=== PATIENT | female | born 1945 | race Asian ===

== ENCOUNTER 2018-06-19 15:29 | Outpatient (CLI) | payer OTHER ==
[2018-06-19 16:13] LABS: CHOL/HDL RATIO 3.5 (1-4.5)
== END 2018-06-19 20:34 | disposition home or self-care (01) ==
LOC: MLB 15:29
PROVIDERS: ATTEND Internal Medicine Geriatric Medicine
DX: E78.5 Hyperlipidemia, unspecified (principal); E16.2 Hypoglycemia, unspecified
CPT/HCPCS: 36415; 82306; 83036

== ENCOUNTER 2018-10-03 18:57 | Outpatient (CLI) | payer OTHER | END 2018-10-03 22:22 | disposition home or self-care (01) | LOC: MLB 18:57 | PROVIDERS: ATTEND Internal Medicine Geriatric Medicine | DX: R73.03 Prediabetes (principal) | CPT/HCPCS: 36415; 82306; 83036 ==

== ENCOUNTER 2019-01-09 19:19 | Outpatient (CLI) | payer OTHER | END 2019-01-09 22:36 | disposition home or self-care (01) | LOC: MLB 19:19 | PROVIDERS: ATTEND Internal Medicine Geriatric Medicine | DX: R73.03 Prediabetes (principal) | CPT/HCPCS: 36415; 82306; 83036 ==

== ENCOUNTER 2019-05-22 15:45 | Outpatient (CLI) | payer OTHER ==
[2019-05-22 16:54] LABS: ANION GAP 15.3 (8-16); CARBON DIOXIDE 26.1 mmol/L (21-32); CHLORIDE 96 mmol/L (98-107); CREATININE 1.2 mg/dL (0.6-1.3); GLUCOSE 92 mg/dL (74-106); POTASSIUM 4.4 mmol/L (3.5-5.1); SODIUM SERUM 133 mmol/L (136-145); UREA NITROGEN, BLOOD 27 mg/dL (7-18)
[2019-05-22 17:00] LABS: CHOL/HDL RATIO 3.6 (1-4.5)
[2019-05-22 21:34] LABS: CKMB RELATIVE INDEX 1.9 (0.0-2.5); CREATINE KINASE MB 4.4 ng/mL (0-3.6)
== END 2019-05-22 20:22 | disposition home or self-care (01) ==
LOC: MLB 15:45
PROVIDERS: ATTEND Internal Medicine Geriatric Medicine
DX: I12.9 Hypertensive chronic kidney disease with stage 1 through stage 4 chronic kidney disease, or unspecified chronic kidney disease (principal); N18.3 Chronic kidney disease, stage 3 (moderate); R73.03 Prediabetes
CPT/HCPCS: 36415; 80048; 82550; 82553; 83036; 84484

== ENCOUNTER 2019-05-25 14:34 | Outpatient (CLI) | payer OTHER ==
[2019-05-25 14:55] LABS: BASOPHILS # (AUTO) 0.1 K/uL (0.00-0.22); EOSINOPHILS # (AUTO) 0.3 K/uL (0-0.4); EOSINOPHILS % (AUTO) 4.2 % (0.0-4.0); HEMATOCRIT 38.4 % (36-48); HEMOGLOBIN 13.1 g/dL (12.0-16.0); LYMPHOCYTES # (AUTO) 1.2 K/uL (2.5-16.5); LYMPHOCYTES % (AUTO) 18.7 % (20.5-51.1); MEAN CORPUSCULAR HEMOGLOBIN 31 pg (27-31); MEAN CORPUSCULAR HGB CONC 34 g/dL (33-37); MEAN CORPUSCULAR VOLUME 89.7 fL (80-94); MONOCYTES # (AUTO) 0.6 K/uL (0.8-1.0); NEUTROPHILS # (AUTO) 4.2 K/uL (1.8-7.7); NEUTROPHILS % (AUTO) 66.1 % (42.2-75.2); PLATELET COUNT (AUTO) 324 K/uL (140-450); RED BLOOD CELL COUNT(AUTO) 4.29 MIL/uL (4.20-5.40); RED CELL DISTRIBUTION WIDTH 13.5 % (11.6-13.7); WHITE BLOOD COUNT (AUTO) 6.4 K/uL (4.8-10.8)
[2019-06-05 20:47] LABS: ANTI-NUCLEAR ANTIBODY TITER NEGATIVE (Negative)
== END 2019-05-25 22:07 | disposition home or self-care (01) ==
LOC: MLB 14:34
PROVIDERS: ATTEND Internal Medicine Geriatric Medicine
DX: R07.89 Other chest pain (principal)
CPT/HCPCS: 36415; 82550; 82553; 84484; 85025; 85651; 86038; 86430

== ENCOUNTER 2019-08-27 18:12 | Outpatient (CLI) | payer OTHER ==
[2019-08-27 18:34] LABS: BASOPHILS # (AUTO) 0.1 K/uL (0.00-0.22); BASOPHILS % (AUTO) 1.6 % (0.0-2.0); EOSINOPHILS # (AUTO) 0.2 K/uL (0-0.4); EOSINOPHILS % (AUTO) 2.8 % (0.0-4.0); HEMATOCRIT 35.7 % (36-48); HEMOGLOBIN 12.4 g/dL (12.0-16.0); LYMPHOCYTES # (AUTO) 1.5 K/uL (2.5-16.5); LYMPHOCYTES % (AUTO) 19.7 % (20.5-51.1); MEAN CORPUSCULAR HEMOGLOBIN 30 pg (27-31); MEAN CORPUSCULAR HGB CONC 35 g/dL (33-37); MEAN CORPUSCULAR VOLUME 85.9 fL (80-94); MONOCYTES # (AUTO) 0.9 K/uL (0.8-1.0); MONOCYTES % (AUTO) 11.9 % (1.7-9.3); NEUTROPHILS # (AUTO) 4.8 K/uL (1.8-7.7); PLATELET COUNT (AUTO) 427 K/uL (140-450); RED BLOOD CELL COUNT(AUTO) 4.15 MIL/uL (4.20-5.40); RED CELL DISTRIBUTION WIDTH 13.2 % (11.6-13.7); WHITE BLOOD COUNT (AUTO) 7.5 K/uL (4.8-10.8)
[2019-08-27 18:52] LABS: ALBUMIN 3.4 g/dL (3.4-5.0); ANION GAP 12.3 (8-16); ASPARTATE AMINOTRANSFERASE 19 U/L (15-37); CARBON DIOXIDE 27.8 mmol/L (21-32); CHLORIDE 95 mmol/L (98-107); CHOL/HDL RATIO 2.9 (1-4.5); CKMB RELATIVE INDEX 2.5 (0.0-2.5); CREATINE KINASE MB 3.3 ng/mL (0-3.6); CREATININE 1.1 mg/dL (0.6-1.3); GLUCOSE 92 mg/dL (74-106); HDL CHOLESTEROL 79 mg/dL (40-60); LDL (CALC) 128 mg/dL (60-100); POTASSIUM 4.1 mmol/L (3.5-5.1); SODIUM SERUM 131 mmol/L (136-145); TOTAL BILIRUBIN 0.2 mg/dL (0.0-1.0); TRIGLYCERIDES 103 mg/dL (30-150); UREA NITROGEN, BLOOD 24 mg/dL (7-18)
== END 2019-08-27 22:00 | disposition home or self-care (01) ==
LOC: MLB 18:12
PROVIDERS: ATTEND Internal Medicine Geriatric Medicine
DX: E78.5 Hyperlipidemia, unspecified (principal)
CPT/HCPCS: 36415; 80053; 82550; 82553; 84484; 85025

== ENCOUNTER 2021-02-18 18:07 | Outpatient (CLI) | payer OTHER ==
[2021-02-18 18:47] LABS: SODIUM SERUM 134 mmol/L (136-145)
[2021-02-18 18:48] LABS: ASPARTATE AMINOTRANSFERASE 25 U/L (15-37); CARBON DIOXIDE 28.6 mmol/L (21-32); CHLORIDE 101 mmol/L (98-107); CREATININE 1.1 mg/dL (0.6-1.3); GLUCOSE 97 mg/dL (74-106); POTASSIUM 4.6 mmol/L (3.5-5.1); TOTAL BILIRUBIN 0.3 mg/dL (0.0-1.0); UREA NITROGEN, BLOOD 23 mg/dL (7-18)
[2021-02-18 18:49] LABS: ALBUMIN 3.5 g/dL (3.4-5.0); CHOL/HDL RATIO 3.3 (1-4.5); HDL CHOLESTEROL 72 mg/dL (40-60); LDL (CALC) 150 mg/dL (60-100); TRIGLYCERIDES 95 mg/dL (30-150)
== END 2021-02-18 20:25 | disposition home or self-care (01) ==
LOC: MLB 18:07
PROVIDERS: ATTEND Internal Medicine Geriatric Medicine
DX: E78.5 Hyperlipidemia, unspecified (principal); E55.9 Vitamin D deficiency, unspecified; R73.03 Prediabetes
CPT/HCPCS: 36415; 80053; 83036

== ENCOUNTER 2022-02-01 15:09 | Outpatient (CLI) | payer OTHER ==
[2022-02-01 15:25] LABS: BASOPHILS # (AUTO) 0.1 K/uL (0.00-0.22); BASOPHILS % (AUTO) 0.8 % (0.0-2.0); EOSINOPHILS # (AUTO) 0.1 K/uL (0-0.4); EOSINOPHILS % (AUTO) 2.3 % (0.0-4.0); HEMATOCRIT 39.6 % (36-48); HEMOGLOBIN 13.3 g/dL (12.0-16.0); LYMPHOCYTES # (AUTO) 1.5 K/uL (2.5-16.5); LYMPHOCYTES % (AUTO) 24.8 % (20.5-51.1); MEAN CORPUSCULAR HEMOGLOBIN 29 pg (27-31); MEAN CORPUSCULAR HGB CONC 34 g/dL (33-37); MEAN CORPUSCULAR VOLUME 87.4 fL (80-94); MONOCYTES # (AUTO) 0.7 K/uL (0.8-1.0); MONOCYTES % (AUTO) 10.9 % (1.7-9.3); NEUTROPHILS # (AUTO) 3.8 K/uL (1.8-7.7); NEUTROPHILS % (AUTO) 61.2 % (42.2-75.2); PLATELET COUNT (AUTO) 274 K/uL (140-450); RED BLOOD CELL COUNT(AUTO) 4.53 MIL/uL (4.20-5.40); RED CELL DISTRIBUTION WIDTH 13.7 % (11.6-13.7); WHITE BLOOD COUNT (AUTO) 6.2 K/uL (4.8-10.8)
[2022-02-01 15:42] LABS: ALBUMIN 3.5 g/dL (3.4-5.0); ANION GAP 12.1 (8-16); ASPARTATE AMINOTRANSFERASE 25 U/L (15-37); CARBON DIOXIDE 26.6 mmol/L (21-32); CHLORIDE 101 mmol/L (98-107); CHOL/HDL RATIO 2.6 (1-4.5); GLUCOSE 93 mg/dL (74-106); HDL CHOLESTEROL 102 mg/dL (40-60); LDL (CALC) 152 mg/dL (60-100); POTASSIUM 4.7 mmol/L (3.5-5.1); SODIUM SERUM 135 mmol/L (136-145); TOTAL BILIRUBIN 0.3 mg/dL (0.0-1.0); TRIGLYCERIDES 73 mg/dL (30-150); UREA NITROGEN, BLOOD 18 mg/dL (7-18)
== END 2022-02-01 20:58 | disposition home or self-care (01) ==
LOC: MLB 15:09
PROVIDERS: ATTEND Internal Medicine Geriatric Medicine
DX: R73.03 Prediabetes (principal); E78.5 Hyperlipidemia, unspecified; E55.9 Vitamin D deficiency, unspecified
CPT/HCPCS: 36415; 80053; 83036; 85025

== ENCOUNTER 2022-04-28 16:07 | Outpatient (CLI) | payer OTHER ==
[2022-04-28 16:34] LABS: BASOPHILS % (AUTO) 0.8 % (0.0-2.0); EOSINOPHILS # (AUTO) 0.2 K/uL (0-0.4); EOSINOPHILS % (AUTO) 3.2 % (0.0-4.0); HEMATOCRIT 39.5 % (36-48); HEMOGLOBIN 13.6 g/dL (12.0-16.0); LYMPHOCYTES # (AUTO) 1.3 K/uL (2.5-16.5); LYMPHOCYTES % (AUTO) 23.3 % (20.5-51.1); MEAN CORPUSCULAR HEMOGLOBIN 30 pg (27-31); MEAN CORPUSCULAR HGB CONC 34 g/dL (33-37); MEAN CORPUSCULAR VOLUME 87.1 fL (80-94); MONOCYTES # (AUTO) 0.6 K/uL (0.8-1.0); MONOCYTES % (AUTO) 10.1 % (1.7-9.3); NEUTROPHILS # (AUTO) 3.5 K/uL (1.8-7.7); NEUTROPHILS % (AUTO) 62.6 % (42.2-75.2); PLATELET COUNT (AUTO) 292 K/uL (140-450); RED BLOOD CELL COUNT(AUTO) 4.54 MIL/uL (4.20-5.40); RED CELL DISTRIBUTION WIDTH 13.9 % (11.6-13.7); WHITE BLOOD COUNT (AUTO) 5.6 K/uL (4.8-10.8)
[2022-04-28 16:53] LABS: HDL CHOLESTEROL 98 mg/dL (40-60); LDL (CALC) 174 mg/dL (60-100); TRIGLYCERIDES 103 mg/dL (30-150)
[2022-04-28 18:53] LABS: ANION GAP 17.7 (8-16); CARBON DIOXIDE 24.1 mmol/L (21-32); CHLORIDE 99 mmol/L (98-107); CREATININE 0.9 mg/dL (0.6-1.3); GLUCOSE 87 mg/dL (74-106); POTASSIUM 4.8 mmol/L (3.5-5.1); SODIUM SERUM 136 mmol/L (136-145); UREA NITROGEN, BLOOD 16 mg/dL (7-18)
[2022-04-28 19:17] LABS: ASPARTATE AMINOTRANSFERASE 41 U/L (15-37); TOTAL BILIRUBIN 0.3 mg/dL (0.0-1.0)
[2022-04-28 20:18] LABS: ALBUMIN 3.5 g/dL (3.4-5.0)
== END 2022-04-28 20:25 | disposition home or self-care (01) ==
LOC: MLB 16:07
PROVIDERS: ATTEND Internal Medicine Geriatric Medicine
DX: E78.5 Hyperlipidemia, unspecified (principal); R73.03 Prediabetes
CPT/HCPCS: 36415; 80053; 83036; 85025

== ENCOUNTER 2022-11-01 15:33 | Outpatient (CLI) | payer OTHER ==
[2022-11-01 16:14] LABS: ALBUMIN 3.5 g/dL (3.4-5.0); ANION GAP 9.9 (8-16); ASPARTATE AMINOTRANSFERASE 24 U/L (15-37); CARBON DIOXIDE 30.4 mmol/L (21-32); CHLORIDE 97 mmol/L (98-107); CHOL/HDL RATIO 2.2 (1-4.5); CREATININE 1.2 mg/dL (0.6-1.3); GLUCOSE 105 mg/dL (74-106); HDL CHOLESTEROL 89 mg/dL (40-60); LDL (CALC) 89 mg/dL (60-100); POTASSIUM 4.3 mmol/L (3.5-5.1); SODIUM SERUM 133 mmol/L (136-145); TOTAL BILIRUBIN 0.3 mg/dL (0.0-1.0); TRIGLYCERIDES 101 mg/dL (30-150); UREA NITROGEN, BLOOD 23 mg/dL (7-18)
== END 2022-11-01 20:15 | disposition home or self-care (01) ==
LOC: MLB 15:33
PROVIDERS: ATTEND Internal Medicine Geriatric Medicine
DX: E78.5 Hyperlipidemia, unspecified (principal); R73.09 Other abnormal glucose
CPT/HCPCS: 36415; 80053; 83036

== ENCOUNTER 2023-01-28 19:45 | Outpatient (CLI) | payer OTHER ==
[2023-01-28 21:26] LABS: ALBUMIN 3.8 g/dL (3.4-5.0); ANION GAP 12.5 (8-16); ASPARTATE AMINOTRANSFERASE 35 U/L (15-37); CARBON DIOXIDE 29.4 mmol/L (21-32); CHLORIDE 93 mmol/L (98-107); GLUCOSE 79 mg/dL (74-106); HDL CHOLESTEROL 103 mg/dL (40-60); LDL (CALC) 59 mg/dL (60-100); POTASSIUM 3.9 mmol/L (3.5-5.1); SODIUM SERUM 131 mmol/L (136-145); TOTAL BILIRUBIN 0.3 mg/dL (0.0-1.0); TRIGLYCERIDES 195 mg/dL (30-150); UREA NITROGEN, BLOOD 23 mg/dL (7-18)
== END 2023-01-28 21:21 | disposition home or self-care (01) ==
LOC: MLB 19:45
PROVIDERS: ATTEND Internal Medicine Geriatric Medicine
DX: R73.03 Prediabetes (principal); E78.5 Hyperlipidemia, unspecified
CPT/HCPCS: 36415; 80053; 83036

== ENCOUNTER 2023-02-01 14:42 | Outpatient (CLI) | payer OTHER | END 2023-02-01 17:50 | disposition home or self-care (01) | LOC: MUS 14:42 | PROVIDERS: ATTEND Internal Medicine Geriatric Medicine | DX: N18.9 Chronic kidney disease, unspecified (principal) | CPT/HCPCS: 76770 ==

== ENCOUNTER 2023-08-17 15:49 | Outpatient (CLI) | payer OTHER ==
[2023-08-17 17:40] LABS: ALANINE AMINOTRANSFERASE 32 U/L (12-78); ALBUMIN 3.2 g/dL (3.4-5.0); ALKALINE PHOSPHATASE 83 U/L (50-136); ANION GAP 11.6 (8-16); ASPARTATE AMINOTRANSFERASE 26 U/L (15-37); CALCIUM 9.7 mg/dL (8.5-10.1); CARBON DIOXIDE 28.4 mmol/L (21-32); CHLORIDE 101 mmol/L (98-107); CHOL/HDL RATIO 1.9 (1-4.5); CHOLESTEROL 184 mg/dL (<200); CREATININE 1.2 mg/dL (0.6-1.3); GLUCOSE 89 mg/dL (74-106); HDL CHOLESTEROL 95 mg/dL (40-60); LDL (CALC) 79 mg/dL (60-100); SODIUM SERUM 136 mmol/L (136-145); TOTAL BILIRUBIN 0.4 mg/dL (0.0-1.0); TOTAL PROTEIN, SERUM 8.6 g/dL (6.4-8.2); TRIGLYCERIDES 54 mg/dL (30-150); UREA NITROGEN, BLOOD 22 mg/dL (7-18)
== END 2023-08-17 20:22 | disposition home or self-care (01) ==
LOC: MLB 15:49
PROVIDERS: ATTEND Internal Medicine Geriatric Medicine
DX: E78.5 Hyperlipidemia, unspecified (principal); R73.03 Prediabetes
CPT/HCPCS: 36415; 80053; 83036

== ENCOUNTER 2024-04-23 21:16 | Emergency (ER) | payer OTHER ==
[~2024-04-23] VITALS: Ht 152.4 cm; Wt 68.0 kg
[2024-04-23 21:18] VITALS: BP 180/75; PULSE 61; RESP 16; TEMP 98.2; O2SAT 99
[2024-04-23 21:56] VITALS: O2SAT 99
== END 2024-04-23 23:00 | disposition home or self-care (01) ==
LOC: MED 21:16
DX: I10 Essential (primary) hypertension (principal); R51.9 Headache, unspecified; R11.2 Nausea with vomiting, unspecified; Z88.2 Allergy status to sulfonamides
CPT/HCPCS: 99281

== ENCOUNTER 2024-04-25 11:02 | Inpatient (IN) | payer OTHER ==
[~2024-04-25] VITALS: Ht 152.4 cm; Wt 67.6 kg
[2024-04-25 11:23] VITALS: BP 174/72; PULSE 59; RESP 20; TEMP 97.8; O2SAT 98
[2024-04-25] MEDS: ACETAMINOPHEN 325 MG TAB PO ONE (12:19)
[2024-04-25] MEDS: LOSARTAN 25 MG TAB PO SCH (12:21)
[2024-04-25] MEDS: TETRACAINE HCL/PF 0.5% OPTH 4 ML BTL OP ONE (12:21)
[2024-04-25] MEDS: FLUORESCEIN OPTH STRIP 1 MG OP ONE (12:21)
[2024-04-25 12:45] LABS: BASOPHILS % (AUTO) 0.6 % (0.0-2.0); EOSINOPHILS # (AUTO) 0.1 K/uL (0-0.4); EOSINOPHILS % (AUTO) 1.9 % (0.0-4.0); HEMATOCRIT 40.4 % (36-48); HEMOGLOBIN 13.6 g/dL (12.0-16.0); LYMPHOCYTES % (AUTO) 15.3 % (20.5-51.1); MEAN CORPUSCULAR HEMOGLOBIN 29 pg (27-31); MEAN CORPUSCULAR HGB CONC 34 g/dL (33-37); MEAN CORPUSCULAR VOLUME 86.9 fL (80-94); MONOCYTES # (AUTO) 0.7 K/uL (0.8-1.0); MONOCYTES % (AUTO) 10.9 % (1.7-9.3); NEUTROPHILS # (AUTO) 4.6 K/uL (1.8-7.7); NEUTROPHILS % (AUTO) 71.3 % (42.2-75.2); PLATELET COUNT (AUTO) 269 K/uL (140-450); RED BLOOD CELL COUNT(AUTO) 4.65 MIL/uL (4.20-5.40); RED CELL DISTRIBUTION WIDTH 14.6 % (11.6-13.7); WHITE BLOOD COUNT (AUTO) 6.5 K/uL (4.8-10.8)
[2024-04-25 12:53] LABS: ANION GAP 11.3 (8-16); CARBON DIOXIDE 28.1 mmol/L (21-32); CHLORIDE 96 mmol/L (98-107); GLUCOSE 114 mg/dL (74-106); POTASSIUM 4.4 mmol/L (3.5-5.1); SODIUM SERUM 131 mmol/L (136-145); UREA NITROGEN, BLOOD 19 mg/dL (7-18)
[2024-04-25] MEDS: ASPIRIN 81 MG TAB.CHEW PO ONE (13:26)
[2024-04-25] MEDS ORDERED: ATOR20TA40 PO (13:45)
[2024-04-25] MEDS ORDERED: METO-251 PO (13:45)
[2024-04-25] MEDS ORDERED: AMLO2.5T2 PO (13:45)
[2024-04-25] MEDS ORDERED: LOSA50TA57 PO (13:45)
[2024-04-25] MEDS ORDERED: LORazepam 1 MG TAB PO PRN (14:35)
[2024-04-25] MEDS ORDERED: ZOLPIDEM 5 MG TAB PO PRN (14:35)
[2024-04-25 16:00] VITALS: BP 153/72; PULSE 53; PULSE 54; RESP 18; TEMP 96.8; O2SAT 98
[2024-04-25 20:00] VITALS: BP 141/70; PULSE 63; RESP 18; TEMP 96.9; O2SAT 97
[2024-04-25 20:04] VITALS: PULSE 67
[2024-04-26] VITALS (9 sets, daily range): BP systolic 126–166; BP diastolic 56–79; PULSE 58–74; RESP 18–20; TEMP 97–98.6; O2SAT 95–98
[2024-04-26] MEDS: HYDROcodone/APAP 5/325 MG 1 TAB TAB PO PRN (03:22)
[2024-04-26] MEDS: ONDANSETRON 4 MG/2 ML VIAL IVP PRN (04:55)
[2024-04-26 07:20] LABS: BASOPHILS % (AUTO) 0.5 % (0.0-2.0); EOSINOPHILS # (AUTO) 0.1 K/uL (0-0.4); EOSINOPHILS % (AUTO) 1.9 % (0.0-4.0); HEMATOCRIT 38.1 % (36-48); HEMOGLOBIN 12.7 g/dL (12.0-16.0); LYMPHOCYTES # (AUTO) 0.8 K/uL (2.5-16.5); LYMPHOCYTES % (AUTO) 12.9 % (20.5-51.1); MEAN CORPUSCULAR HEMOGLOBIN 29 pg (27-31); MEAN CORPUSCULAR HGB CONC 34 g/dL (33-37); MEAN CORPUSCULAR VOLUME 86.7 fL (80-94); MONOCYTES # (AUTO) 0.8 K/uL (0.8-1.0); MONOCYTES % (AUTO) 12.4 % (1.7-9.3); NEUTROPHILS # (AUTO) 4.5 K/uL (1.8-7.7); NEUTROPHILS % (AUTO) 72.3 % (42.2-75.2); PLATELET COUNT (AUTO) 243 K/uL (140-450); RED BLOOD CELL COUNT(AUTO) 4.39 MIL/uL (4.20-5.40); RED CELL DISTRIBUTION WIDTH 14.6 % (11.6-13.7); WHITE BLOOD COUNT (AUTO) 6.2 K/uL (4.8-10.8)
[2024-04-26 07:35] LABS: ALANINE AMINOTRANSFERASE 32 U/L (12-78); ALBUMIN 2.8 g/dL (3.4-5.0); ALKALINE PHOSPHATASE 81 U/L (50-136); ANION GAP 11.4 (8-16); ASPARTATE AMINOTRANSFERASE 22 U/L (15-37); CALCIUM 8.3 mg/dL (8.5-10.1); CARBON DIOXIDE 24.7 mmol/L (21-32); CHLORIDE 99 mmol/L (98-107); CREATININE 0.9 mg/dL (0.6-1.3); GLUCOSE 103 mg/dL (74-106); POTASSIUM 4.1 mmol/L (3.5-5.1); SODIUM SERUM 131 mmol/L (136-145); TOTAL BILIRUBIN 0.3 mg/dL (0.0-1.0); TOTAL PROTEIN, SERUM 6.6 g/dL (6.4-8.2); UREA NITROGEN, BLOOD 17 mg/dL (7-18)
[2024-04-26] MEDS ORDERED: amLODIPine 5 MG TAB PO SCH (09:00)
[2024-04-26] MEDS: METOPROLOL 50 MG TAB PO SCH (09:07)
[2024-04-26] MEDS: ATORVASTATIN 20 MG TAB PO SCH (09:07)
[2024-04-26] MEDS: DOCUSATE SODIUM 100 MG GELCAP PO SCH (09:07)
[2024-04-26] MEDS: amLODIPine 5 MG TAB PO SCH (09:08)
[2024-04-26] MEDS: LOSARTAN 50 MG TAB PO SCH ×2 (09:08→23:45)
[2024-04-26] MEDS ORDERED: OFLOXACIN 0.3% OP 5 ML BTL OP SCH (13:50)
[2024-04-26] MEDS: OFLOXACIN 0.3% OP 5 ML BTL OP SCH (17:12)
[2024-04-26] MEDS: ACETAMINOPHEN 325 MG TAB PO PRN (17:16)
[2024-04-27 07:21] LABS: BASOPHILS % (AUTO) 0.6 % (0.0-2.0); EOSINOPHILS # (AUTO) 0.2 K/uL (0-0.4); EOSINOPHILS % (AUTO) 3.1 % (0.0-4.0); HEMATOCRIT 39.6 % (36-48); HEMOGLOBIN 13.4 g/dL (12.0-16.0); LYMPHOCYTES % (AUTO) 17.9 % (20.5-51.1); MEAN CORPUSCULAR HEMOGLOBIN 29 pg (27-31); MEAN CORPUSCULAR HGB CONC 34 g/dL (33-37); MEAN CORPUSCULAR VOLUME 86.7 fL (80-94); MONOCYTES # (AUTO) 0.9 K/uL (0.8-1.0); NEUTROPHILS # (AUTO) 3.4 K/uL (1.8-7.7); NEUTROPHILS % (AUTO) 62.4 % (42.2-75.2); PLATELET COUNT (AUTO) 249 K/uL (140-450); RED BLOOD CELL COUNT(AUTO) 4.56 MIL/uL (4.20-5.40); RED CELL DISTRIBUTION WIDTH 14.5 % (11.6-13.7); WHITE BLOOD COUNT (AUTO) 5.4 K/uL (4.8-10.8)
[2024-04-27 07:57] LABS: ALANINE AMINOTRANSFERASE 35 U/L (12-78); ALKALINE PHOSPHATASE 90 U/L (50-136); ANION GAP 11.3 (8-16); ASPARTATE AMINOTRANSFERASE 24 U/L (15-37); CALCIUM 8.8 mg/dL (8.5-10.1); CHLORIDE 97 mmol/L (98-107); GLUCOSE 98 mg/dL (74-106); POTASSIUM 4.3 mmol/L (3.5-5.1); SODIUM SERUM 130 mmol/L (136-145); TOTAL BILIRUBIN 0.5 mg/dL (0.0-1.0); TOTAL PROTEIN, SERUM 6.9 g/dL (6.4-8.2); UREA NITROGEN, BLOOD 17 mg/dL (7-18)
[2024-04-27 08:00] VITALS: BP 157/68; PULSE 75; RESP 20; TEMP 98; O2SAT 98
[2024-04-27] MEDS: predniSONE 20 MG TAB PO SCH (12:38)
[2024-04-27] MEDS: ACYCLOVIR 500 MG in DEXTROSE 5% 100 ML IV SCH (12:39)
[2024-04-27 16:00] VITALS: BP 157/78; PULSE 74; RESP 18; TEMP 97.6; O2SAT 97
[2024-04-27 17:14] VITALS: O2SAT 96
[2024-04-27 20:00] VITALS: BP 149/80; PULSE 81; RESP 18; TEMP 97.5; O2SAT 96
[2024-04-28 04:00] VITALS: BP 173/86; PULSE 70; RESP 18; TEMP 97.8; O2SAT 97
[2024-04-28] MEDS: hydrALAZINE 10 MG TAB PO PRN (05:03)
[2024-04-28 06:58] LABS: BASOPHILS % (AUTO) 0.1 % (0.0-2.0); HEMATOCRIT 38.5 % (36-48); HEMOGLOBIN 13.2 g/dL (12.0-16.0); LYMPHOCYTES % (AUTO) 8.9 % (20.5-51.1); MEAN CORPUSCULAR HEMOGLOBIN 29 pg (27-31); MEAN CORPUSCULAR HGB CONC 34 g/dL (33-37); MEAN CORPUSCULAR VOLUME 85.6 fL (80-94); MONOCYTES # (AUTO) 0.9 K/uL (0.8-1.0); MONOCYTES % (AUTO) 8.7 % (1.7-9.3); NEUTROPHILS # (AUTO) 8.8 K/uL (1.8-7.7); NEUTROPHILS % (AUTO) 82.3 % (42.2-75.2); PLATELET COUNT (AUTO) 268 K/uL (140-450); RED CELL DISTRIBUTION WIDTH 14.2 % (11.6-13.7); WHITE BLOOD COUNT (AUTO) 10.6 K/uL (4.8-10.8)
[2024-04-28 07:16] LABS: ALANINE AMINOTRANSFERASE 34 U/L (12-78); ALBUMIN 2.9 g/dL (3.4-5.0); ALKALINE PHOSPHATASE 89 U/L (50-136); ANION GAP 12.4 (8-16); ASPARTATE AMINOTRANSFERASE 23 U/L (15-37); CALCIUM 8.7 mg/dL (8.5-10.1); CHLORIDE 94 mmol/L (98-107); GLUCOSE 132 mg/dL (74-106); POTASSIUM 4.4 mmol/L (3.5-5.1); SODIUM SERUM 128 mmol/L (136-145); TOTAL BILIRUBIN 0.3 mg/dL (0.0-1.0); TOTAL PROTEIN, SERUM 6.9 g/dL (6.4-8.2); UREA NITROGEN, BLOOD 23 mg/dL (7-18)
[2024-04-28 08:00] VITALS: BP 158/66; PULSE 67; PULSE 70; RESP 18; TEMP 97.1; O2SAT 97
[2024-04-28 20:00] VITALS: BP 167/78; PULSE 69; RESP 18; TEMP 97.4; O2SAT 97
[2024-04-28] MEDS: carvediloL 12.5 MG TAB PO SCH (21:16)
[2024-04-28] MEDS: amLODIPine 5 MG TAB PO SCH (21:16)
[2024-04-28] MEDS: POLYETHYLENE GLYCOL 17 GM/PKT PO SCH (21:24)
[2024-04-29 04:00] VITALS: BP 160/67; PULSE 66; RESP 18; TEMP 96.8; O2SAT 97
[2024-04-29 06:45] LABS: BASOPHILS % (AUTO) 0.1 % (0.0-2.0); HEMATOCRIT 38.1 % (36-48); LYMPHOCYTES # (AUTO) 1.6 K/uL (2.5-16.5); LYMPHOCYTES % (AUTO) 11.5 % (20.5-51.1); MEAN CORPUSCULAR HEMOGLOBIN 29 pg (27-31); MEAN CORPUSCULAR HGB CONC 34 g/dL (33-37); MEAN CORPUSCULAR VOLUME 85.7 fL (80-94); MONOCYTES # (AUTO) 0.9 K/uL (0.8-1.0); MONOCYTES % (AUTO) 6.9 % (1.7-9.3); NEUTROPHILS % (AUTO) 81.5 % (42.2-75.2); PLATELET COUNT (AUTO) 272 K/uL (140-450); RED BLOOD CELL COUNT(AUTO) 4.45 MIL/uL (4.20-5.40); RED CELL DISTRIBUTION WIDTH 14.3 % (11.6-13.7); WHITE BLOOD COUNT (AUTO) 13.5 K/uL (4.8-10.8)
[2024-04-29 06:58] LABS: ALANINE AMINOTRANSFERASE 30 U/L (12-78); ALBUMIN 2.9 g/dL (3.4-5.0); ALKALINE PHOSPHATASE 88 U/L (50-136); ASPARTATE AMINOTRANSFERASE 16 U/L (15-37); CALCIUM 8.7 mg/dL (8.5-10.1); CARBON DIOXIDE 28.2 mmol/L (21-32); CHLORIDE 93 mmol/L (98-107); GLUCOSE 116 mg/dL (74-106); POTASSIUM 4.2 mmol/L (3.5-5.1); SODIUM SERUM 128 mmol/L (136-145); TOTAL BILIRUBIN 0.3 mg/dL (0.0-1.0); TOTAL PROTEIN, SERUM 6.9 g/dL (6.4-8.2); UREA NITROGEN, BLOOD 23 mg/dL (7-18)
[2024-04-29 10:00] VITALS: PULSE 65; RESP 18; TEMP 96.9; O2SAT 96
[2024-04-29 12:00] VITALS: BP 107/65; PULSE 79; RESP 18; TEMP 98.6; O2SAT 99
[2024-04-29 20:00] VITALS: BP 150/72; PULSE 65; RESP 18; TEMP 97.2; O2SAT 98
[2024-04-29] MEDS: amLODIPine 5 MG TAB PO SCH (20:43)
[2024-04-30 04:00] VITALS: BP 142/70; PULSE 70; RESP 18; TEMP 97.2; O2SAT 96
[2024-04-30 07:09] LABS: BASOPHILS % (AUTO) 0.1 % (0.0-2.0); EOSINOPHILS % (AUTO) 0.1 % (0.0-4.0); HEMOGLOBIN 12.5 g/dL (12.0-16.0); LYMPHOCYTES # (AUTO) 1.7 K/uL (2.5-16.5); LYMPHOCYTES % (AUTO) 12.9 % (20.5-51.1); MEAN CORPUSCULAR HEMOGLOBIN 29 pg (27-31); MEAN CORPUSCULAR HGB CONC 35 g/dL (33-37); MEAN CORPUSCULAR VOLUME 84.3 fL (80-94); MONOCYTES # (AUTO) 0.9 K/uL (0.8-1.0); NEUTROPHILS # (AUTO) 10.6 K/uL (1.8-7.7); NEUTROPHILS % (AUTO) 79.9 % (42.2-75.2); PLATELET COUNT (AUTO) 275 K/uL (140-450); RED BLOOD CELL COUNT(AUTO) 4.27 MIL/uL (4.20-5.40); RED CELL DISTRIBUTION WIDTH 14.3 % (11.6-13.7); WHITE BLOOD COUNT (AUTO) 13.3 K/uL (4.8-10.8)
[2024-04-30 07:30] LABS: ALANINE AMINOTRANSFERASE 30 U/L (12-78); ALBUMIN 2.7 g/dL (3.4-5.0); ALKALINE PHOSPHATASE 81 U/L (50-136); ANION GAP 11.6 (8-16); ASPARTATE AMINOTRANSFERASE 15 U/L (15-37); CALCIUM 8.4 mg/dL (8.5-10.1); CARBON DIOXIDE 25.4 mmol/L (21-32); CHLORIDE 95 mmol/L (98-107); GLUCOSE 145 mg/dL (74-106); SODIUM SERUM 128 mmol/L (136-145); TOTAL BILIRUBIN 0.3 mg/dL (0.0-1.0); TOTAL PROTEIN, SERUM 6.4 g/dL (6.4-8.2); UREA NITROGEN, BLOOD 29 mg/dL (7-18)
[2024-04-30 08:00] VITALS: PULSE 63; RESP 18; TEMP 98.3; O2SAT 97
[2024-04-30 11:04] VITALS: O2SAT 96
[2024-04-30 12:00] VITALS: BP 142/70; PULSE 63; RESP 18; TEMP 208.9; O2SAT 97
[2024-04-30] MEDS ORDERED: LOSA-270 PO (13:07)
[2024-04-30] MEDS ORDERED: AMLO-3 PO (13:07)
[2024-04-30] MEDS ORDERED: ATOR20TA40 PO (13:07)
[2024-04-30] MEDS ORDERED: PRED20TA5 PO (13:07)
[2024-04-30] MEDS ORDERED: CARV12.52 PO (13:07)
[2024-04-30] MEDS ORDERED: ACYC400T14 PO (13:15)
== END 2024-04-30 19:25 | disposition home or self-care (01) | DRG 595 ==
LOC: MED 11:02 → MTU 14:38
PROVIDERS: ADMIT Student in an Organized Health Care Education/Training Program; ATTEND Student in an Organized Health Care Education/Training Program
DX: B02.9 Zoster without complications (principal); I21.A1 Myocardial infarction type 2; E87.1 Hypo-osmolality and hyponatremia; I16.0 Hypertensive urgency; G50.0 Trigeminal neuralgia; E78.5 Hyperlipidemia, unspecified; I10 Essential (primary) hypertension; E88.09 Other disorders of plasma-protein metabolism, not elsewhere classified; Z88.2 Allergy status to sulfonamides
CPT/HCPCS: 36415; 70450; 71045; 80048; 80053; 84484; 85025; 85651; 86140; 87081; 93005; 97116; 97163-GP; 99285; J0133; J2405; J7060; J7512